=== PATIENT | male | born 1965 | race Caucasian/White ===

== ENCOUNTER 2021-10-05 10:57 | Emergency (ER) | payer BC ==
[~2021-10-05] VITALS: Ht 175.3 cm; Wt 64.9 kg
[2021-10-05 12:17] LABS: HEMOGLOBIN 14.4 gm/dl (14.0-17.5); RED BLOOD COUNT 4.2 M/UL (4.20-5.50); WHITE BLOOD COUNT 12.1 K/UL (4.5-11.0)
[2021-10-05 13:11] LABS: BUN/CREATININE RATIO 14 (0-10)
[2021-10-05] MEDS ORDERED: KEPPRA 500 MG500 MG PO (18:55)
== END 2021-10-05 20:21 | disposition home or self-care (01) ==
LOC: ER1 10:57
PROVIDERS: Emergency Medicine
DX: S16.1XXA Strain of muscle, fascia and tendon at neck level, initial encounter (principal); S46.811A Strain of other muscles, fascia and tendons at shoulder and upper arm level, right arm, initial encounter; E87.6 Hypokalemia; R55 Syncope and collapse; R56.9 Unspecified convulsions; X58.XXXA Exposure to other specified factors, initial encounter
CPT/HCPCS: 70450; 72125; 73080; 80048; 81001; 82550; 82553; 82962; 84484; 85025; 85379; 93005; 96374; 99285; J1953; J2060; Q9967